=== PATIENT | male | born 1990 | race Caucasian/White ===

== ENCOUNTER 2017-08-29 17:47 | Emergency (ER) | payer SELFPAY ==
[~2017-08-29] VITALS: Ht 180.3 cm; Wt 68.0 kg
[2017-08-29 17:57] VITALS: Ht 180.3 cm; Wt 68.0 kg
[2017-08-29] MEDS ORDERED: CALC600T PO (19:50)
[2017-08-29] MEDS ORDERED: LAMO200T38 PO (19:50)
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
[2017-08-29 20:31] VITALS: BP 122/77; PULSE 91; TEMP 36.8; O2SAT 97
== END 2017-08-29 20:32 | disposition home or self-care (01) ==
LOC: C.EDB 17:48 → C.EDA 20:32
DX: F39 Unspecified mood [affective] disorder (principal); R45.4 Irritability and anger; G40.909 Epilepsy, unspecified, not intractable, without status epilepticus; F41.9 Anxiety disorder, unspecified; F17.210 Nicotine dependence, cigarettes, uncomplicated; Z79.899 Other long term (current) drug therapy